=== PATIENT | male | born 1930 | race Caucasian/White ===

== ENCOUNTER 2018-10-28 18:19 | Inpatient (IN) | payer OTHER, MEDICARE ==
[~2018-10-28] VITALS: Ht 165.1 cm; Wt 58.1 kg
--- NOTE | 2018-10-28 19:27 | NUR ---
BREANNE SARAVIA PA SPEAKING TO PT IN [facility]. AWAITING ER BED.
[2018-10-28 20:00] LABS: BASOPHILS # (AUTO) 0.1 /CMM (0.0-0.2); BASOPHILS % (AUTO) 1.2 % (0.0-2.0); HEMATOCRIT 33 % (39-51); HEMOGLOBIN 10.6 g/dL (13.5-17.5); LYMPHOCYTES # (AUTO) 0.6 /CMM (0.8-4.8); LYMPHOCYTES % (AUTO) 14.5 % (20.0-44.0); MEAN CORPUSCULAR HGB CONC 32 g/dl (31.0-36.0); MEAN CORPUSCULAR VOLUME 89 fL (80-96); MONOCYTES # (AUTO) 0.4 /CMM (0.1-1.30); MONOCYTES % (AUTO) 10.1 % (2.0-12.0); NEUTROPHILS # (AUTO) 3.1 /CMM (1.8-8.9); NEUTROPHILS % (AUTO) 71.2 % (43.0-81.0); PLATELET COUNT (AUTO) 110 /CMM (150-450); RED BLOOD CELL COUNT(AUTO) 3.69 MIL/uL (4.5-6.0); WHITE BLOOD COUNT (AUTO) 4.3 K/uL (4.3-11.0)
[2018-10-28 20:08] LABS: ALANINE AMINOTRANSFERASE 12 U/L (12-78); ALBUMIN 3.2 g/dL (3.4-5.0); ALCOHOL, BLOOD < 3 mg/dL (0-0); ALKALINE PHOSPHATASE 100 U/L (46-116); ASPARTATE AMINOTRANSFERASE 12 U/L (15-37); BILIRUBIN,DIRECT 0.2 mg/dL (0.0-0.2); BILIRUBIN,TOTAL 0.6 mg/dL (0.2-1.0); CALCIUM, SERUM 9.3 mg/dL (8.5-10.1); CARBON DIOXIDE 31 mmol/L (21-32); CHLORIDE 104 mmol/L (98-107); GLUCOSE 101 mg/dL (74-106); POTASSIUM 4.3 mmol/L (3.5-5.1); SODIUM SERUM 142 mmol/L (136-145); TOTAL PROTEIN, SERUM 6.5 g/dL (6.4-8.2); UREA NITROGEN, BLOOD 41 mg/dL (7-18)
[2018-10-28 20:09] LABS: SALICYLATE 0.4 mg/dL (2.8-20.0)
[2018-10-28 20:10] LABS: ACETAMINOPHEN 0 ug/ml (10-30)
--- NOTE | 2018-10-28 20:55 | NUR ---
PT GETTING OUT OF BED UNASSISTED, ABLE TO STAND BUT VERY UNSTEADY. PER RECORD, PT HAS FREQUENT FALLS AT FACILITY. DESPITE FREQUENT REORIENTATION AND EDUCATION, PT CONTINUES TO TRY TO GET OUT OF BED. PT'S HAS ALREADY LEFT ER. PLACED ON 2 POINT SOFT RESTRAINTS FOR SAFETY.
--- NOTE | 2018-10-28 21:30 | NUR ---
PT ATTEMPTED TO URINATE IN URINAL, UNABLE. VERBAL ORDER FOR IN AND OUT CATH OBTAINED.
--- NOTE | 2018-10-28 21:45 | NUR ---
IN AND OUT CATH 14FR PERFORMED FOR NO URINE. DRAINED 30ML CLEAR YELLOW URINE.
--- NOTE | 2018-10-28 21:59 | NUR ---
RIKI TORRES AT BEDSIDE 1:1 SITTER. SOFT WRIST RESTRAINTS DISCONTINUED AT THIS TIME.
--- NOTE | 2018-10-28 22:11 | NUR ---
WINDY RN, CRISIS DINKING MACHINE OPERATOR, AT BEDSIDE.
[2018-10-28 22:31] LABS: APPEARANCE,URINE SL CLOUDY (CLEAR); BILIRUBIN,URINE NEGATIVE (NEGATIVE); BLOOD, URINE TRACE Ery/uL (NEGATIVE); COLOR,URINE YELLOW (YELLOW); KETONES,URINE NEGATIVE (NEGATIVE); LEUKOCYTE ESTERASE ,URINE 3+ (NEGATIVE); NITRITE, URINE NEGATIVE (NEGATIVE); PROTEIN,URINE NEGATIVE (NEGATIVE); UGLUCOSE NEGATIVE (NEGATIVE); UROBILINOGEN,URINE 0.2 EU/dL (0.2)
--- NOTE | 2018-10-28 22:35 | NUR ---
5150 HOLD FOR GD, PSYCHOSIS NOS, ACCEPTED TO DR GUILLERMO
[2018-10-28 22:46] LABS: BACTERIA,URINE Few /HPF (None Seen); RBC,URINE 0-2 /HPF (0-2); SQUAMOUS EPITHELIAL CELL,UR Few /HPF (None Seen); WBC,URINE 51-80 /HPF (0-3)
[2018-10-28 22:47] LABS: MUCUS,URINE Few /LPF (None Seen)
--- NOTE | 2018-10-28 22:52 | NUR ---
REPORT GIVEN TO EDDIE SEGOVIA FOR ADMISSION
[2018-10-28 23:10] VITALS: BP 119/83
[2018-10-29] MEDS ORDERED: LORAZEPAM 0.5 MG TABLET PO PRN
[2018-10-29] MEDS ORDERED: MAG HYDROX/AL HYDROX/SIMETH 30 ML UDC PO PRN
[2018-10-29] MEDS ORDERED: ZOLPIDEM TARTRATE 5 MG TABLET PO PRN
[2018-10-29 00:46] VITALS: BP 119/83
--- NOTE | 2018-10-29 00:54 | NUR ---
ADMISSION NOTES: ADMITTED THIS 88 Y/O MALE FROM ER. PT IS ON 5150 HOLD FOR GD. PER HOLD PT IS CONFUSED, DISORIENTED, DISORGANIZED. PT WAS FOUND OUT OF BED, ANXIOUS, RESTLESS. ACCORDING TO STAFF AT THE FACILITY. PATIENT HAS BEEN INCREASINGLY CONFUSED, AGITATED, AND NOT SLEEPING, WANDERS FROM OTHER PATIENT ROOM, TALKING TO SELF, RESPONDING TO INTERNAL STIMULI. PT UNABLE TO CARE FOR SELF. UPON FACE TO FACE ASSESSMENT PATIENT IS A/O X1, CONFUSED, RESTLESS, AMBULATORY WITH ASSIST. FALL PRECAUTIONS IMPLEMENTED AT ALL TIMES. V/S WNL. RESPIRATION EVEN AND UNLABORED. NO SOB. NO COMPLAIN OF PAIN/DISCOMFORT. NO ACUTE DISTRESS NOTED. SKIN ASSESSMENT DONE. PICTURES TAKEN. BELONGINGS INVENTORIED AND CHECKED FOR CONTRABAND. NO CONTRABAND FOUND. BOTH DOCTORS AWARE AND NOTIFIED OF THE ADMISSION. BED LOCKED AND PLACED ON LOWEST POSITION TO MAINTAIN SAFETY. ALL NEEDS ATTENDED. WILL CONTINUE TO MONITOR Q 15 MINS. FOR SAFETY AND BEHAVIOR.
[2018-10-29] MEDS ORDERED: SENN-168 PO (02:05)
[2018-10-29] MEDS ORDERED: PANT40TA4 PO (02:05)
[2018-10-29] MEDS ORDERED: PANT20TA3 PO (02:05)
[2018-10-29] MEDS ORDERED: ASPI-1169 PO (02:05)
[2018-10-29] MEDS ORDERED: TAMS-12 PO (02:05)
[2018-10-29] MEDS ORDERED: LEVO500T75 PO (02:05)
--- NOTE | 2018-10-29 06:24 | NUR ---
PAGED DR. NEWTON FOR MEDICATION VERIFICATION. AWAITING FOR CALLBACK. WILL ENDORSE TO THE NEXT SHIFT TO FOLLOW UP.
[2018-10-29 07:40] LABS: BASOPHILS % (AUTO) 0.9 % (0.0-2.0); EOSINOPHILS % (AUTO) 3.2 % (0.0-6.0); HEMATOCRIT 33 % (39-51); HEMOGLOBIN 10.8 g/dL (13.5-17.5); LYMPHOCYTES # (AUTO) 0.5 /CMM (0.8-4.8); LYMPHOCYTES % (AUTO) 11.9 % (20.0-44.0); MEAN CORPUSCULAR HGB CONC 33 g/dl (31.0-36.0); MEAN CORPUSCULAR VOLUME 88 fL (80-96); MONOCYTES # (AUTO) 0.5 /CMM (0.1-1.30); MONOCYTES % (AUTO) 11.1 % (2.0-12.0); NEUTROPHILS # (AUTO) 3.1 /CMM (1.8-8.9); NEUTROPHILS % (AUTO) 72.9 % (43.0-81.0); PLATELET COUNT (AUTO) 103 /CMM (150-450); RED BLOOD CELL COUNT(AUTO) 3.75 MIL/uL (4.5-6.0); WHITE BLOOD COUNT (AUTO) 4.2 K/uL (4.3-11.0)
[2018-10-29 07:58] LABS: CHOLESTEROL 110 mg/dL (<200); HDL CHOLESTEROL 39 mg/dL (40-60); LDL 66 mg/dL (0-99); TRIGLYCERIDES 66 mg/dL (30-150)
[2018-10-29] MEDS ORDERED: ATOR10TA PO (08:04)
[2018-10-29] MEDS ORDERED: ZOLP5TAB2 PO (08:04)
[2018-10-29] MEDS ORDERED: MAGN400O6 PO (08:04)
[2018-10-29] MEDS ORDERED: FURO-144 PO (08:04)
[2018-10-29] MEDS ORDERED: OLAN5TAB3 PO (08:04)
[2018-10-29] MEDS ORDERED: MIDO5TAB PO (08:04)
[2018-10-29] MEDS ORDERED: POLY17PO4 PO (08:04)
[2018-10-29] MEDS ORDERED: NA P133E RC (08:04)
[2018-10-29] MEDS ORDERED: LACT10SO PO (08:04)
[2018-10-29] MEDS ORDERED: ACET-868 PO (08:04)
[2018-10-29 08:08] VITALS: BP 133/80
[2018-10-29 08:10] LABS: ALANINE AMINOTRANSFERASE 11 U/L (12-78); ALKALINE PHOSPHATASE 97 U/L (46-116); ASPARTATE AMINOTRANSFERASE 14 U/L (15-37); BILIRUBIN,TOTAL 0.7 mg/dL (0.2-1.0); CALCIUM, SERUM 9.2 mg/dL (8.5-10.1); CARBON DIOXIDE 28 mmol/L (21-32); CHLORIDE 104 mmol/L (98-107); CREATININE 1.9 mg/dL (0.6-1.3); GLUCOSE 84 mg/dL (74-106); POTASSIUM 4.1 mmol/L (3.5-5.1); SODIUM SERUM 142 mmol/L (136-145); TOTAL PROTEIN, SERUM 6.1 g/dL (6.4-8.2); UREA NITROGEN, BLOOD 41 mg/dL (7-18)
[2018-10-29] MEDS ORDERED: MAGNESIUM HYDROXIDE 30 ML UDC PO PRN ×2 (14:00)
[2018-10-29] MEDS ORDERED: ACETAMINOPHEN 325 MG TABLET PO PRN ×2 (14:00)
[2018-10-29] MEDS ORDERED: LEVOFLOXACIN (500MG) 500 MG TABLET PO ONE (15:00)
[2018-10-29] MEDS: SENNOSIDES 8.6 MG TABLET PO SCH (16:58)
[2018-10-29 17:13] VITALS: BP 115/57
[2018-10-29 20:00] VITALS: BP 120/77
[2018-10-29] MEDS: OLANZAPINE 2.5 MG TABLET PO SCH (22:03)
[2018-10-29] MEDS: TAMSULOSIN 0.4 MG CAP.SR.24H PO SCH (22:03)
[2018-10-29] MEDS: ATORVASTATIN 10 MG TABLET PO SCH (22:03)
[2018-10-30 07:58] VITALS: BP 104/76
[2018-10-30] MEDS: ASPIRIN 81 MG TAB.CHEW PO SCH (08:46)
[2018-10-30] MEDS: POLYETHYLENE GLYCOL 3350 17 GM POWD.PACK PO SCH (08:46)
[2018-10-30] MEDS: PANTOPRAZOLE 40 MG TABLET.DR PO SCH (08:46)
[2018-10-30] MEDS: SENNOSIDES 8.6 MG TABLET PO SCH ×2 (08:46→16:53)
--- NOTE | 2018-10-30 11:46 | NUR ---
RECEIVED NEW ORDERS FROM DR TRUDI BOWLING TO GIVE NS @ 100MLS/HR X 2 LITERS, NOTED AND CARRIED OUT.
--- NOTE | 2018-10-30 11:58 | NUR ---
CLARIFFIED NEW ORDERS WITH DR TRUDI BOWLING REGARDING NS @ 100MLS/HR X 2 LITERS, WITH NEW ORDERS TO CHANGE TO D5NS @ 100MLS/HR X 2 LITERS, NOTED AND CARRIED OUT.
[2018-10-30] MEDS ORDERED: IV NS 0.9% 1,000 ML BAG IV PRN (12:00)
[2018-10-30] MEDS ORDERED: IV NS 0.9% 1,000 ML IV SCH (12:00)
[2018-10-30] MEDS: IV D5/ 0.9% NACL 1,000 ML IV SCH ×2 (12:50→22:54)
[2018-10-30] MEDS: LEVOFLOXACIN (250MG) 250 MG TABLET PO SCH (15:25)
[2018-10-30 16:19] VITALS: BP 123/85
[2018-10-30 20:00] VITALS: BP 116/47
[2018-10-30 20:30] VITALS: BP 116/47
[2018-10-30] MEDS: TAMSULOSIN 0.4 MG CAP.SR.24H PO SCH (21:16)
[2018-10-30] MEDS: OLANZAPINE 2.5 MG TABLET PO SCH (21:16)
[2018-10-30] MEDS: ATORVASTATIN 10 MG TABLET PO SCH (21:16)
[2018-10-31 07:36] LABS: BASOPHILS % (AUTO) 0.5 % (0.0-2.0); EOSINOPHILS % (AUTO) 3.1 % (0.0-6.0); HEMATOCRIT 33 % (39-51); LYMPHOCYTES # (AUTO) 0.4 /CMM (0.8-4.8); LYMPHOCYTES % (AUTO) 8.5 % (20.0-44.0); MEAN CORPUSCULAR HGB CONC 33 g/dl (31.0-36.0); MEAN CORPUSCULAR VOLUME 88 fL (80-96); MONOCYTES # (AUTO) 0.5 /CMM (0.1-1.30); MONOCYTES % (AUTO) 9.4 % (2.0-12.0); NEUTROPHILS # (AUTO) 3.8 /CMM (1.8-8.9); NEUTROPHILS % (AUTO) 78.5 % (43.0-81.0); PLATELET COUNT (AUTO) 95 /CMM (150-450); RED BLOOD CELL COUNT(AUTO) 3.77 MIL/uL (4.5-6.0); WHITE BLOOD COUNT (AUTO) 4.8 K/uL (4.3-11.0)
[2018-10-31 08:00] VITALS: BP 149/78
[2018-10-31 08:00] LABS: ALANINE AMINOTRANSFERASE 11 U/L (12-78); ALBUMIN 2.9 g/dL (3.4-5.0); ALKALINE PHOSPHATASE 89 U/L (46-116); ASPARTATE AMINOTRANSFERASE 22 U/L (15-37); BILIRUBIN,TOTAL 0.6 mg/dL (0.2-1.0); CALCIUM, SERUM 8.8 mg/dL (8.5-10.1); CARBON DIOXIDE 26 mmol/L (21-32); CHLORIDE 108 mmol/L (98-107); CREATININE 1.5 mg/dL (0.6-1.3); GLUCOSE 116 mg/dL (74-106); PHOSPHORUS 3.9 mg/dL (2.5-4.9); POTASSIUM 4.1 mmol/L (3.5-5.1); SODIUM SERUM 144 mmol/L (136-145); UREA NITROGEN, BLOOD 43 mg/dL (7-18)
--- NOTE | 2018-10-31 08:00 | NUR ---
gps river tester: initial assessment received pt in bed awake, but confused and disoriented; unable to comprehend and follow simple directions. sitter at bedside for safety. hob elevated at 90 degree for meal. reality orientation provided prn. will continue to monitor.
[2018-10-31 08:07] LABS: CREATINE KINASE, TOTAL 333 U/L (39-308)
[2018-10-31] MEDS: PANTOPRAZOLE 40 MG TABLET.DR PO SCH (08:10)
[2018-10-31] MEDS: POLYETHYLENE GLYCOL 3350 17 GM POWD.PACK PO SCH (08:10)
[2018-10-31] MEDS: ASPIRIN 81 MG TAB.CHEW PO SCH (08:10)
[2018-10-31] MEDS: SENNOSIDES 8.6 MG TABLET PO SCH ×2 (08:10→16:06)
--- NOTE | 2018-10-31 10:00 | NUR ---
gps take off worker: notes am care rendered by heel slugger. incontinent care rendered by staff. pt is resistive during care and keeps tossing and turning. reality orientation provided prn. sitter remains at bedside. will continue to monitor.
--- NOTE | 2018-10-31 10:09 | NUR ---
MELLY contacted [facility] Address: [address] [place] [address] and spoke with Edie, resident service coordinator regarding pts readmission. Edie stated that she would have DON contact MELLY to discuss pts readmission status.
--- NOTE | 2018-10-31 10:10 | NUR ---
SW spoke with pts Jo Ann [phone] regarding pts discharge plan and collateral information.
--- NOTE | 2018-10-31 11:05 | NUR ---
SW contacted KYLE Duncan at [facility] Address: [address] [place] [address] and left voicemail requesting callback to confirm pts re-admission.
--- NOTE | 2018-10-31 11:09 | NUR ---
INITIAL DISCHARGE PLAN: Patient will return to [facility] Address: [address] [facility], [place] [address] . MELLY left PerlaKYLE at voicemail requesting callback to confirm re-admission. MELLY will help form a safe and proper discharge in collaboration with pts and MD.
--- NOTE | 2018-10-31 12:00 | NUR ---
gps video machines mechanic: notes pt remains resistive while doing incontinency care. turned and repositioned. pt moves when repositioned to side to side. sitter remains at bedside. will continue to monitor.
--- NOTE | 2018-10-31 12:37 | NUR ---
SW contacted pts Jo Ann [phone] to inform her [facility] is not authorizing inpatient hospitalization due to SO being out of their network. Pts is being very difficult stating that the information event coordinator received is incorrect. SW attempted to tell her that BX is not authorizing and she states the opposite that she contacted them and they told her he was pre-authorized. Again, SW informed her event coordinator had contacted BX and SW explained information event coordinator has received. Pts refused to accept the information provided was accurate. She is requesting event coordinator contact her as she states BX and Medicare have the correct name and matching demographics. The address on his face sheet is the address to the [facility] came from.
--- NOTE | 2018-10-31 13:52 | NUR ---
UR NOTE: AUTH/REF#[id number] OBTAINED FROM MCKENZIE Storey WITH [facility] AT [phone]. SW left verbal clinical review via voicemail with DRYWALL HANGER HELPER ASSIGNED EMILY Higuera [phone] EXT [phone].
--- NOTE | 2018-10-31 14:00 | NUR ---
gps bill of lading clerk: notes pt remains resistive to care, but no agitation noted. incontinent care rendered. z guard applied prn for sacral redness noted. will continue to monitor.
--- NOTE | 2018-10-31 14:59 | NUR ---
UR NOTE: SW received a voicemail from HOSPITAL ADMINISTRATOR ASSIGNED EMILY Higuera [phone] EXT [phone] stating BX will not authorize and they will close the case because the carve out; [place] must take responsibility, especially for an ER admission on hold.
[2018-10-31 16:00] VITALS: BP 130/75
--- NOTE | 2018-10-31 16:00 | NUR ---
gps glass blowing instructor: notes pt still with no agitation, but moves around in bed when repositioned. still resistive during incontinent care. turned and repositioned. will continue to monitor.
[2018-10-31] MEDS: LEVOFLOXACIN (250MG) 250 MG TABLET PO SCH (16:06)
--- NOTE | 2018-10-31 18:00 | NUR ---
gps attache: notes noted with unopen blister to left sacral area (o.5cmx0.3cm); still with redness. z guard applied with mepilex. incontinent care rendered. pt still with no agitation, but moves around in bed when repositioned. wound triggered. dr. mayorga notified and made aware. Addendum: 10/31/18 at 1849 by CHARLENE VARMAN charge nurse at bedside and assessed the wound.
--- NOTE | 2018-10-31 18:15 | NUR ---
gps marketing analytics specialist: notes here and made aware and updated plan of care.
--- NOTE | 2018-10-31 18:30 | NUR ---
gps admission nurse: notes pt attempting to get out of bed. assisted back safely to bed and repositioned. remains at bedside. pt remains confused and disoriented. reality orientation provided prn. sitter remains at bedside. will continue to monitor.
--- NOTE | 2018-10-31 19:00 | NUR ---
gps logistics planning engineer: notes report given to novem (rn) for continuity of care. remains at bedside.
[2018-10-31] MEDS: TAMSULOSIN 0.4 MG CAP.SR.24H PO SCH (21:35)
[2018-10-31] MEDS: ATORVASTATIN 10 MG TABLET PO SCH (21:35)
[2018-10-31] MEDS: QUETIAPINE FUMARATE 25 MG TABLET PO SCH (21:35)
[2018-10-31 21:36] VITALS: BP 133/87
--- NOTE | 2018-11-01 05:27 | NUR ---
GPS-RN CALLED BY AIRCRAFT REFUELLER TO ASSESS PATIENT. IMMEDIATELY WENT TO PT'S ROOM. PATIENT IS RESPONSIVE TO TACTILE AND VERBAL STIMULI, BOTH EYES ARE CLOSED. V/S TAKEN AND NOTED BP 128/81, PULSE 100, R21, T98.1 O2 SATURATION @97% ON ROOM AIR. NO ACUTE OR RESPIRATORY DISTRESS NOTED. PATIENT NOTED HAVING PRODUCTIVE COUGH UNABLE TO COUGH UP THE MUCUS/PHLEGM. UPON AUSCULTATION NOTED WITH FINE CRACKLES. HEAD OF THE BED ELEVATED TO PROMOTE OXYGENATION. OFFERED FLUIDS TOLERATED. ISELA HANDY INFORMATICS DEVELOPER WAS NOTIFIED OF FINDING ASSESSMENT WITH NEW ORDER OF MUCINEX 600MG PO Q12HRS PRN NOTED AND CARRIED OUT. WILL MONITOR PATIENT CLOSELY FOR SAFETY. [id number]- PAGED DR. NEWTON LEFT MESSAGE REGARDING PATIENT CHANGE IN CONDITION. AWAITING CALL BACK.
[2018-11-01] MEDS ORDERED: GUAIFENESIN LA 600 MG TABLET.SA PO PRN ×2 (06:00)
[2018-11-01] MEDS: GUAIFENESIN LA 600 MG TABLET.SA PO PRN (06:27)
[2018-11-01] MEDS: PANTOPRAZOLE 40 MG TABLET.DR PO SCH (07:30)
[2018-11-01 08:00] VITALS: BP 132/96
[2018-11-01] MEDS: ASPIRIN 81 MG TAB.CHEW PO SCH (09:00)
[2018-11-01] MEDS: POLYETHYLENE GLYCOL 3350 17 GM POWD.PACK PO SCH (09:00)
[2018-11-01] MEDS: SENNOSIDES 8.6 MG TABLET PO SCH ×2 (09:00→18:04)
--- NOTE | 2018-11-01 09:37 | NUR ---
MELLY spoke with Vinny, volunteer recruitment coordinator at [facility] Address: [address] [place] [address] who stated administration did not want to accept pt back as they were not a locked facility and therefore wanted SO to find placement. MELLY explained that since they brought pt to ER, legally they must take pt back as facility is still charging insurance for pts bed hold and can be considered dumping if they do not take pt back. Vinny, asked SW for callback number and stated "ok" SW will follow up and also contact Dr. Beatty to inform him that facility does not want to take pt back.
--- NOTE | 2018-11-01 10:52 | NUR ---
WOUND CARE CONSULT: PT PRESENTS WITH DRY SCAB TO LEFT ELBOW AND BLANCHABLE REDNESS TO SACRAL AREA, PRESENT ON ADMISSION. PT ALSO NOTED TO HAVE INTACT BLISTER TO LEFT INNER BUTTOCK WHICH IS INCONTINENCE ASSOCIATED SKIN DAMAGE. RECOMMENDATIONS MADE FOR WOUND CARE AND SKIN PROTECTION. DISCUSSED WITH NURSING STAFF. SITTER AT BEDSIDE. CURRENT THIAGO SCORE IS 14. Addendum: 11/01/18 at 1053 by DARBY POLLOCK WNDNU Amended: Links added.
[2018-11-01] MEDS ORDERED: Z GUARD REMEDY 2 OZ OINT TP PRN (11:00)
[2018-11-01 12:11] LABS: *SPE A/G RATIO 1.3 (0.7-1.7); *SPE ALBUMIN 3.3 g/dL (2.9-4.4); *SPE ALPHA-1-GLOBULIN 0.2 g/dL (0.0-0.4); *SPE ALPHA-2-GLOBULIN 0.6 g/dL (0.4-1.0); *SPE BETA GLOBULIN 0.8 g/dL (0.7-1.3); *SPE GLOBULIN, TOTAL 2.5 g/dL (2.2-3.9); *SPE M-SPIKE Not Observed g/dL (Not Observed); *SPEGAMMA GLOBULIN 0.9 g/dL (0.4-1.8); PTH, INTACT 51 pg/mL (15-65)
[2018-11-01] MEDS: Z GUARD REMEDY 2 OZ OINT TP SCH (13:25)
[2018-11-01 16:00] VITALS: BP 133/68
[2018-11-01 20:18] VITALS: BP 131/92
[2018-11-01] MEDS: QUETIAPINE FUMARATE 25 MG TABLET PO SCH (21:45)
[2018-11-01] MEDS: ATORVASTATIN 10 MG TABLET PO SCH (21:45)
[2018-11-01] MEDS: TAMSULOSIN 0.4 MG CAP.SR.24H PO SCH (21:45)
--- NOTE | 2018-11-02 05:45 | NUR ---
GPS-RN UNABLE TO COLLECT URINE. PATIENT IS RESISTIVE TO CARE AND UNCOOPERATIVE. WILL ENDORSE FOR CONTINUITY OF CARE.
[2018-11-02] MEDS: PANTOPRAZOLE 40 MG TABLET.DR PO SCH (07:30)
[2018-11-02 08:00] VITALS: BP 100/67
[2018-11-02] MEDS: POLYETHYLENE GLYCOL 3350 17 GM POWD.PACK PO SCH (08:56)
[2018-11-02] MEDS: ASPIRIN 81 MG TAB.CHEW PO SCH (08:56)
[2018-11-02] MEDS: SENNOSIDES 8.6 MG TABLET PO SCH ×2 (08:56→17:34)
[2018-11-02] MEDS: Z GUARD REMEDY 2 OZ OINT TP SCH (08:56)
--- NOTE | 2018-11-02 14:48 | NUR ---
MELLY spoke with Vinny, recruiting administrator at [facility] Address: [address] [place] [address] to confirm facility would be taking pt back. Vinny stated that facility did not want to accept pt back and also stated that DON had spoken with pts psychiatrist Dr. Suazo regarding finding a locked facility for pt. MELLY explained that due to pts HMO insurance MELLY was unable to find placement elsewhere and since [facility] was the sending facility by law facility needed to accept pt back and if they did not want to continue treating pt they needed to give pts a 30 day notice. MELLY also informed Vinny that not accepting pt back is considering dumping. Vinny became upset, MELLY informed him that SW booth supervisor would contact him.
[2018-11-02 16:00] VITALS: BP 159/86
--- NOTE | 2018-11-02 16:46 | NUR ---
dr. galeano informed of neuro consult by dr. jeff.
[2018-11-02 16:50] LABS: BASOPHILS % (AUTO) 0.6 % (0.0-2.0); EOSINOPHILS % (AUTO) 1.1 % (0.0-6.0); HEMATOCRIT 33 % (39-51); HEMOGLOBIN 10.8 g/dL (13.5-17.5); LYMPHOCYTES # (AUTO) 0.4 /CMM (0.8-4.8); LYMPHOCYTES % (AUTO) 5.5 % (20.0-44.0); MEAN CORPUSCULAR HGB CONC 33 g/dl (31.0-36.0); MEAN CORPUSCULAR VOLUME 88 fL (80-96); MONOCYTES # (AUTO) 0.5 /CMM (0.1-1.30); MONOCYTES % (AUTO) 6.8 % (2.0-12.0); NEUTROPHILS # (AUTO) 6.2 /CMM (1.8-8.9); PLATELET COUNT (AUTO) 88 /CMM (150-450); RED BLOOD CELL COUNT(AUTO) 3.74 MIL/uL (4.5-6.0); WHITE BLOOD COUNT (AUTO) 7.2 K/uL (4.3-11.0)
[2018-11-02 17:08] LABS: CALCIUM, SERUM 8.9 mg/dL (8.5-10.1); CARBON DIOXIDE 28 mmol/L (21-32); CHLORIDE 109 mmol/L (98-107); CREATININE 1.4 mg/dL (0.6-1.3); GLUCOSE 96 mg/dL (74-106); POTASSIUM 3.8 mmol/L (3.5-5.1); SODIUM SERUM 145 mmol/L (136-145); UREA NITROGEN, BLOOD 49 mg/dL (7-18)
--- NOTE | 2018-11-02 17:37 | NUR ---
pt is alert oriented x 1. pt appears to be sedated. sleeping majority of the time. occasionally awake but would fall asleep without any stimuli. psych and archaeology professor are aware.
[2018-11-02 17:47] LABS: BAND % (MANUAL) 1 % (0.0-5.0); LYMPHOCYTES % (MANUAL) 1 % (16-48); NEUTROPHILS % (MANUAL) 93 (42-76)
[2018-11-02 17:48] LABS: MONOCYTES % (MANUAL) 4 % (0-11.0)
[2018-11-02 17:49] LABS: EOSINOPHILS % (MANUAL) 1 % (0-4)
--- NOTE | 2018-11-02 18:36 | NUR ---
pt is alert oriented x 1. pt appears to be sedated. sleeping majority of the time. occasionally awake but would fall asleep without any stimuli. very poor oral intake today. psych and director patient are aware.
--- NOTE | 2018-11-02 18:37 | NUR ---
unable to retract foreskin of penis. unable to do in and out casanova. condom cath placed for UA.
--- NOTE | 2018-11-02 18:44 | NUR ---
bladder scan with approx 250ml.
[2018-11-02 19:41] VITALS: BP 143/84
[2018-11-02 21:21] LABS: APPEARANCE,URINE SL CLOUDY (CLEAR); BILIRUBIN,URINE NEGATIVE (NEGATIVE); BLOOD, URINE NEGATIVE Ery/uL (NEGATIVE); COLOR,URINE YELLOW (YELLOW); KETONES,URINE NEGATIVE (NEGATIVE); LEUKOCYTE ESTERASE ,URINE NEGATIVE (NEGATIVE); NITRITE, URINE NEGATIVE (NEGATIVE); PROTEIN,URINE 1+ mg/dl (NEGATIVE); UGLUCOSE NEGATIVE (NEGATIVE); UROBILINOGEN,URINE 0.2 EU/dL (0.2)
[2018-11-02 21:24] LABS: CREATININE, URINE 113.2 MG/DL (30.0-125.0); URINE TOTAL PROTEIN 75.7 mg/dL (0-11.9)
[2018-11-02 21:37] LABS: BACTERIA,URINE Few /HPF (None Seen); RBC,URINE 0-2 /HPF (0-2); SQUAMOUS EPITHELIAL CELL,UR Rare /HPF (None Seen); WBC,URINE 0-2 /HPF (0-3)
[2018-11-02] MEDS: ATORVASTATIN 10 MG TABLET PO SCH (21:54)
[2018-11-02] MEDS: QUETIAPINE FUMARATE 25 MG TABLET PO SCH (21:55)
[2018-11-02] MEDS: TAMSULOSIN 0.4 MG CAP.SR.24H PO SCH (21:55)
[2018-11-02 22:43] LABS: EOSINOPHIL,URINE None Seen
[2018-11-03] MEDS: GUAIFENESIN LA 600 MG TABLET.SA PO PRN (01:53)
[2018-11-03 08:00] VITALS: BP 136/81
[2018-11-03] MEDS: PANTOPRAZOLE 40 MG TABLET.DR PO SCH ×2 (08:00→09:14)
[2018-11-03] MEDS: ASPIRIN 81 MG TAB.CHEW PO SCH (09:14)
[2018-11-03] MEDS: POLYETHYLENE GLYCOL 3350 17 GM POWD.PACK PO SCH (09:14)
[2018-11-03] MEDS: SENNOSIDES 8.6 MG TABLET PO SCH (09:14)
[2018-11-03] MEDS: Z GUARD REMEDY 2 OZ OINT TP SCH (09:14)
--- NOTE | 2018-11-03 10:16 | NUR ---
MELLY faxed SNF referral to Mckenzie Rust at [facility] Address: [address] [place] [address] for review.
--- NOTE | 2018-11-03 10:17 | NUR ---
RN-CO: Paged Nikita COW RIDER, to notify regarding BUN 49 and creatinine 1.4 awaiting to call back.
--- NOTE | 2018-11-03 10:27 | NUR ---
GPS/RN-NOTES BONNIE DURHAM CALLED AND STATED" HE WILL COME TO SEE THE PATIENT".
--- NOTE | 2018-11-03 11:36 | NUR ---
DISCHARGE NOTE: Pt is being discharged to MED/SURG due to Dehydration. Pts hold was discontinued and discharge will be coordinated by unit social work case manager.
--- NOTE | 2018-11-03 11:42 | NUR ---
GPS/RN-NOTES BONNIE DURHAM SEEN THE PATIENT WITH ORDERS. Addendum: 11/03/18 at 1146 by LORE MENDIOLA RN GIVE IV 0.9% NS 500ML AT 100ML/HR. X1 THAN D/C AT MED SURG UNIT.
[2018-11-03] MEDS ORDERED: IV NS 0.9% 500 ML IV ONE (12:00)
[2018-11-03] MEDS ORDERED: IV NS 0.9% 1,000 ML IV PRN (12:00)
--- NOTE | 2018-11-03 12:12 | NUR ---
MELLY faxed referral packet to Aimee, school community relations coordinator at [facility] Address: [address], [place] [address] for review of possible psych unit admission/transfer.
[2018-11-03 13:43] LABS: BASOPHILS # (AUTO) 0.1 /CMM (0.0-0.2); BASOPHILS % (AUTO) 0.6 % (0.0-2.0); EOSINOPHILS % (AUTO) 1.2 % (0.0-6.0); HEMATOCRIT 34 % (39-51); HEMOGLOBIN 11.2 g/dL (13.5-17.5); LYMPHOCYTES # (AUTO) 0.3 /CMM (0.8-4.8); LYMPHOCYTES % (AUTO) 3.7 % (20.0-44.0); MEAN CORPUSCULAR HGB CONC 33 g/dl (31.0-36.0); MEAN CORPUSCULAR VOLUME 88 fL (80-96); MONOCYTES # (AUTO) 0.4 /CMM (0.1-1.30); MONOCYTES % (AUTO) 5.4 % (2.0-12.0); NEUTROPHILS # (AUTO) 7.3 /CMM (1.8-8.9); NEUTROPHILS % (AUTO) 89.1 % (43.0-81.0); PLATELET COUNT (AUTO) 90 /CMM (150-450); WHITE BLOOD COUNT (AUTO) 8.2 K/uL (4.3-11.0)
[2018-11-03 13:59] LABS: ALANINE AMINOTRANSFERASE 8 U/L (12-78); ALBUMIN 2.8 g/dL (3.4-5.0); ALKALINE PHOSPHATASE 89 U/L (46-116); ASPARTATE AMINOTRANSFERASE 12 U/L (15-37); CALCIUM, SERUM 9.1 mg/dL (8.5-10.1); CARBON DIOXIDE 29 mmol/L (21-32); CHLORIDE 109 mmol/L (98-107); CREATININE 1.3 mg/dL (0.6-1.3); GLUCOSE 112 mg/dL (74-106); POTASSIUM 3.8 mmol/L (3.5-5.1); SODIUM SERUM 146 mmol/L (136-145); TOTAL PROTEIN, SERUM 6.1 g/dL (6.4-8.2); UREA NITROGEN, BLOOD 50 mg/dL (7-18)
[2018-11-03 14:09] LABS: THYROID STIMULATING HORMONE 0.853 uIU/mL (0.358-3.74)
--- NOTE | 2018-11-03 14:57 | NUR ---
RN-CO: PER GENER CHARGE NURSE IN ED, PATIENT WILL BE IN BED # 2. ( PER INSTRUCTIONS OF MERCEDES OFFSET PRINTING OPERATOR)
--- NOTE | 2018-11-03 15:04 | NUR ---
RN-CO: DR GUILLERMO AND PATIENT'S JORDAN SUTTONARD
--- NOTE | 2018-11-03 15:16 | NUR ---
GPS/RN-NOTES PATIENT WAS DISCHARGE TO [facility] ER FOR FURTHER EVALUATIONS. DR GUILLERMO AND PATIENT'S JORDAN RING MADE AWARE OF THE DISCHARGE . REPORT WAS GIVEN TO KATIE (RELATIONSHIP MANAGEMENT LEAD). ALL BELONGINGS INCLUDING DENTURE WAS DISCHARGE WITH PATIENT ENDORSE ALL TO KATIE.
[2018-11-03] MEDS ORDERED: MAG30ORA PO (15:17)
[2018-11-03] MEDS ORDERED: QUET25TA PO (15:17)
[2018-11-03] MEDS ORDERED: ZOLP5TAB8 PO (15:17)
[2018-11-03] MEDS ORDERED: LORA1TAB PO (15:17)
[2018-11-03] MEDS ORDERED: ALLA266C2 TP ×2 (15:17)
[2018-11-03] MEDS ORDERED: GUAI600T53 PO (15:17)
== END 2018-11-03 15:00 | DRG 885 ==
LOC: ER 18:21 → GPS 22:47
PROVIDERS: ADMIT Psychiatry & Neurology Psychiatry; ATTEND Psychiatry & Neurology Psychiatry
DX: F29 Unspecified psychosis not due to a substance or known physiological condition (principal); F01.50 Vascular dementia, unspecified severity, without behavioral disturbance, psychotic disturbance, mood disturbance, and anxiety; N18.3 Chronic kidney disease, stage 3 (moderate); N17.0 Acute kidney failure with tubular necrosis; G92 Toxic encephalopathy; N39.0 Urinary tract infection, site not specified; I12.9 Hypertensive chronic kidney disease with stage 1 through stage 4 chronic kidney disease, or unspecified chronic kidney disease; E78.5 Hyperlipidemia, unspecified; Z86.73 Personal history of transient ischemic attack (TIA), and cerebral infarction without residual deficits; Z79.899 Other long term (current) drug therapy; N40.0 Benign prostatic hyperplasia without lower urinary tract symptoms; K72.90 Hepatic failure, unspecified without coma; R33.9 Retention of urine, unspecified; Z79.82 Long term (current) use of aspirin; B96.5 Pseudomonas (aeruginosa) (mallei) (pseudomallei) as the cause of diseases classified elsewhere; Z16.30 Resistance to unspecified antimicrobial drugs; J44.9 Chronic obstructive pulmonary disease, unspecified; I48.0 Paroxysmal atrial fibrillation; Z73.6 Limitation of activities due to disability
CPT/HCPCS: 36415; 70450-TC; 71045-TC; 80048-TC; 80053-TC; 80061-TC; 80076-TC; 80305; 81000-TC; 82550-TC; 82553-TC; 82570-TC; 82962-TC; 83605-TC; 83735-TC; 83970; 84100-TC; 84155; 84155-TC; 84165; 84300-TC; 84443-TC; 85025-TC; 87081-TC; 87086-TC; A4349; A4606; G0480; J7030; J7040; J7042; Z7610

== ENCOUNTER 2018-11-03 15:09 | Inpatient (IN) | payer OTHER, MEDICARE ==
[~2018-11-03] VITALS: Ht 182.9 cm; Wt 59.9 kg
[~2018-11-03 15:09] MED LIST: ACET-868 PO; ASPI-1169 PO; ATOR10TA PO; FURO-144 PO; LACT10SO PO; LEVO500T75 PO; MAGN400O6 PO; MIDO5TAB PO; NA P133E RC; PANT40TA4 PO; POLY17PO4 PO; SENN-168 PO; TAMS-12 PO
[2018-11-03] MEDS ORDERED: QUET25TA PO (15:17)
[2018-11-03] MEDS ORDERED: ALLA266C2 TP ×2 (15:17)
[2018-11-03] MEDS ORDERED: ZOLP5TAB8 PO (15:17)
[2018-11-03] MEDS ORDERED: GUAI600T53 PO (15:17)
[2018-11-03] MEDS ORDERED: MAG30ORA PO (15:17)
[2018-11-03] MEDS ORDERED: LORA1TAB PO (15:17)
--- NOTE | 2018-11-03 16:26 | NUR ---
REPORT GIVEN TO LEYDA SEGOVIA. PT AWAITING TRANSFER TO FLOOR.
--- NOTE | 2018-11-03 16:40 | NUR ---
TRANSFERED TO FLOOR IN STABLE CONDITION.
--- NOTE | 2018-11-03 17:30 | NUR ---
MS RN NOTES RECEIVED PATIENT FROM ER. PATIENT ALERT, ORIENTED X1 CONFUSED. DOES NOT APPEAR TO BE IN DISTRESS. PATIENT PLACED IN BED. PATIENT NOTED TO BE FALL RISK. TRYING TO GET OUT OF BED. CHARGE NURSE MADE AWARE OF PATIENT FALL RISK. PATIENT ORIENTED TO ROOM. CALL LIGHT WITHIN REACH. BED IN LOW LOCKED POSITION. BED ALARM ON. PERIPHERAL IV INTACT PATENT. WILL CONTINUE TO MONITOR.
--- NOTE | 2018-11-03 18:20 | NUR ---
MS RN NOTES PATIENT TRANSFERRED TO [facility] DUE TO PATIENT BEING CONFUSED AND TRYING TO GET OUT OF BED WITH SITTER AT [facility]. REPORT GIVEN TO JANETTE.
--- NOTE | 2018-11-03 18:22 | NUR ---
RN NOTES RECEIVED PATIENT FROM ELIZABETH, ADMISSION PENDING. PATIENT A/OX1, CONFUSED, VSS. CALL LIGHT WITHIN REACH, WILL ENDORSE TO ARCHITECTURE TECHNICIAN FOR DAYNA. SITTER AT BEDSIDE.
[2018-11-03 18:23] VITALS: BP 138/76
[2018-11-03] MEDS ORDERED: ACETAMINOPHEN 325 MG TABLET PO PRN (19:00)
[2018-11-03] MEDS ORDERED: Z GUARD REMEDY 2 OZ OINT TP PRN (19:00)
[2018-11-03] MEDS ORDERED: ONDANSETRON HCL/PF 4 MG/2 ML VIAL IVP PRN (19:00)
[2018-11-03] MEDS ORDERED: LACTULOSE 10 G/15 ML UDC (PYXIS) PO PRN (19:00)
[2018-11-03 20:06] VITALS: BP 132/93
[2018-11-03] MEDS ORDERED: ENOXAPARIN SODIUM 40 MG/0.4 ML DISP.SYRIN SQ SCH (21:00)
[2018-11-03] MEDS: TAMSULOSIN 0.4 MG CAP.SR.24H PO SCH (21:34)
[2018-11-03] MEDS: ATORVASTATIN 10 MG TABLET PO SCH (21:34)
[2018-11-04] MEDS: IV 1/2NS 1000 ML 1,000 ML IV PRN ×2 (05:38→17:01)
--- NOTE | 2018-11-04 07:08 | NUR ---
MS RN NOTES PATIENT IN BED EYES CLOSED, RESPOND TO VERBAL AND TACTILE STIMULI. NO ACUTE DISTRESS NOTED. BREATHING UNLABORED. NO SOB NOTED. IV ACCESS PATENT AND INTACT, NO REDNESS OR SWELLING NOTED. SAFETY MEASURES IN PLACE. CALL LIGHT WITHIN REACH. WILL CONTINUE TO MONITOR ACCORDINGLY.
[2018-11-04 07:23] LABS: BASOPHILS % (AUTO) 0.6 % (0.0-2.0); EOSINOPHILS % (AUTO) 2.4 % (0.0-6.0); HEMATOCRIT 34 % (39-51); HEMOGLOBIN 11.3 g/dL (13.5-17.5); LYMPHOCYTES # (AUTO) 0.5 /CMM (0.8-4.8); LYMPHOCYTES % (AUTO) 7.1 % (20.0-44.0); MEAN CORPUSCULAR HGB CONC 33 g/dl (31.0-36.0); MEAN CORPUSCULAR VOLUME 88 fL (80-96); MONOCYTES # (AUTO) 0.5 /CMM (0.1-1.30); MONOCYTES % (AUTO) 6.6 % (2.0-12.0); NEUTROPHILS # (AUTO) 6.2 /CMM (1.8-8.9); NEUTROPHILS % (AUTO) 83.3 % (43.0-81.0); PLATELET COUNT (AUTO) 95 /CMM (150-450); RED BLOOD CELL COUNT(AUTO) 3.88 MIL/uL (4.5-6.0); WHITE BLOOD COUNT (AUTO) 7.4 K/uL (4.3-11.0)
[2018-11-04 07:31] LABS: ALANINE AMINOTRANSFERASE 13 U/L (12-78); ALBUMIN 2.8 g/dL (3.4-5.0); ALKALINE PHOSPHATASE 95 U/L (46-116); ASPARTATE AMINOTRANSFERASE 14 U/L (15-37); BILIRUBIN,TOTAL 0.9 mg/dL (0.2-1.0); CALCIUM, SERUM 9.2 mg/dL (8.5-10.1); CARBON DIOXIDE 29 mmol/L (21-32); CHLORIDE 110 mmol/L (98-107); CREATININE 1.4 mg/dL (0.6-1.3); GLUCOSE 100 mg/dL (74-106); PHOSPHORUS 3.9 mg/dL (2.5-4.9); SODIUM SERUM 146 mmol/L (136-145); TOTAL PROTEIN, SERUM 6.3 g/dL (6.4-8.2); UREA NITROGEN, BLOOD 50 mg/dL (7-18)
[2018-11-04 07:38] LABS: CHOLESTEROL 105 mg/dL (<200); HDL CHOLESTEROL 31 mg/dL (40-60); LDL 65 mg/dL (0-99); THYROID STIMULATING HORMONE 0.892 uIU/mL (0.358-3.74); TRIGLYCERIDES 66 mg/dL (30-150)
[2018-11-04 08:00] VITALS: BP 110/73
[2018-11-04 08:04] LABS: IRON, SERUM 21 ug/dl (50-175); TOTAL IRON BINDING CAPACITY 227 ug/dl (250-450)
[2018-11-04] MEDS ORDERED: LEVOFLOXACIN (500MG) 500 MG TABLET PO SCH (09:00)
[2018-11-04] MEDS: ASPIRIN 81 MG TAB.CHEW PO SCH (09:06)
[2018-11-04] MEDS: POLYETHYLENE GLYCOL 3350 17 GM POWD.PACK PO SCH (09:06)
[2018-11-04] MEDS: MIDODRINE HCL (5MG) 5 MG TABLET PO SCH ×2 (09:06→17:01)
--- NOTE | 2018-11-04 10:31 | NUR ---
SW contacted Med Surg 3 KWAME Benito and informed her that pt's psychiatrist is Dr. Da Silva and to give him a call regarding following up with the pt.
--- NOTE | 2018-11-04 10:43 | NUR ---
GPS Note: Pt. was on a 5250 on [facility] which was broken by Dr Suazo when pt. became medically unstable. Dr Suaoz informed that this pt. will not return to [facility] unit. Plan: Pt. will be continued on psychotropic medication on medical floor. Spoke with Dr Suazo at 1046 today and he will see the pt. on the medical floor. Plan: Pt. needs custodial placement once he is stable from a medical standpoint. Pt. has advanced dementia. Pt. was sent to [facility] by [facility] facility who are adamantly refusing to take the pt. back. transit survey workerNya in GPS tried to ahve facility accept pt. back but they refused. Pt. needs placement in an alternative custodial facility that is contracted with [facility]. stated to intake that effective November 15, pt. will have Medicare as he does not qualify for [facility] ([facility] ) in 2019 due to too few hours worked in 2018 to qualify for [employer] benefit. Dr Suazo will consult psychiatrically on medical floor.
--- NOTE | 2018-11-04 11:13 | NUR ---
MS RN NOTES RECEIVED PATIENT ASLEEP IN BED WITH NO DISTRESS NOTED. PERIPHERAL IV INTACT AND PATENT. NO C/O PAIN OR DISCOMFORT. BED AT LOW LOCK SETTING. ALL BELONGINGS KEPT NEAR BEDSIDE. WILL CONTINUE TO MONITOR.
[2018-11-04 16:00] VITALS: BP 128/85
--- NOTE | 2018-11-04 18:40 | NUR ---
MS RN NOTES RECEIVED NEW ORDERS FROM DR SMITA WOODS WITH ORDERS TO CHANGE IVF TO 125ML/HR, NOTED AND CARRIED OUT.
--- NOTE | 2018-11-04 18:46 | NUR ---
MS RN CLOSING NOTES PATIENT REMAINS ASLEEP IN BED WITH NO DISTRESS NOTED. SITTER AND BEDSIDE. NO C/O PAIN OR DISCOMFORT. ALL DUE MEDS GIVEN ORDERED WITH NO ASE NOTED. PERIPHERAL IV REMAINS INTACT AND PATENT. BED IN LOW LOCK SETTING. CALL LIGHT WITHIN REACH. WILL ENDORSE TO ONCOMING SHIFT.
[2018-11-04 20:00] VITALS: BP 113/81
[2018-11-04] MEDS: QUETIAPINE FUMARATE 25 MG TABLET PO SCH (21:55)
[2018-11-04] MEDS: TAMSULOSIN 0.4 MG CAP.SR.24H PO SCH (21:55)
[2018-11-04] MEDS: ATORVASTATIN 10 MG TABLET PO SCH (21:55)
[2018-11-05] MEDS: IV 1/2NS 1000 ML 1,000 ML IV PRN ×3 (04:25→22:23)
--- NOTE | 2018-11-05 06:20 | NUR ---
MS RN NOTES MORNING CARE RENDERED BY SUSAN GONZALEZ TOLERATED WELL.NO SOB.IVF INFUSING.IN NO ACUTE DISTRESS.WILL ENDORSE TO DAY NURSE FOR DAYNA.
--- NOTE | 2018-11-05 07:26 | NUR ---
MS RN OPENING NOTES RECEIVED PT FROM NIGHTSHIFT NURSE IN STABLE CONDITION. PT IS A/O X1. NO SOB OR ACUTE SIGNS OF DISTRESS NOTED AT THIS TIME. PT ON RA AND SATING WELL. PT CALM AT THIS TIME. IV TO LEFT FA NOTED TO BE PATENT AND INTACT. NO REDNESS OR SIGNS OF INFILTRATION NOTED. PT TOLERATING NS INFUSION WELL. 1:1 SITTER AT BEDSIDE. BED ALARM ON FOR FURTHER SAFETY. BED IN LOW LOCKED POSITION, SIDE RAILS UP X2. WILL CONTINUE TO MONITOR
[2018-11-05 08:00] VITALS: BP 110/74
[2018-11-05 08:32] LABS: CALCIUM, SERUM 8.5 mg/dL (8.5-10.1); CARBON DIOXIDE 27 mmol/L (21-32); CHLORIDE 111 mmol/L (98-107); CREATININE 1.2 mg/dL (0.6-1.3); GLUCOSE 97 mg/dL (74-106); POTASSIUM 3.5 mmol/L (3.5-5.1); SODIUM SERUM 146 mmol/L (136-145); UREA NITROGEN, BLOOD 46 mg/dL (7-18)
[2018-11-05 08:34] LABS: BASOPHILS % (AUTO) 0.5 % (0.0-2.0); EOSINOPHILS % (AUTO) 3.6 % (0.0-6.0); HEMATOCRIT 31 % (39-51); HEMOGLOBIN 10.2 g/dL (13.5-17.5); LYMPHOCYTES # (AUTO) 0.5 /CMM (0.8-4.8); LYMPHOCYTES % (AUTO) 8.2 % (20.0-44.0); MEAN CORPUSCULAR HGB CONC 33 g/dl (31.0-36.0); MEAN CORPUSCULAR VOLUME 88 fL (80-96); MONOCYTES # (AUTO) 0.5 /CMM (0.1-1.30); MONOCYTES % (AUTO) 7.3 % (2.0-12.0); NEUTROPHILS # (AUTO) 5.1 /CMM (1.8-8.9); NEUTROPHILS % (AUTO) 80.4 % (43.0-81.0); PLATELET COUNT (AUTO) 88 /CMM (150-450); RED BLOOD CELL COUNT(AUTO) 3.48 MIL/uL (4.5-6.0); WHITE BLOOD COUNT (AUTO) 6.4 K/uL (4.3-11.0)
[2018-11-05] MEDS: ASPIRIN 81 MG TAB.CHEW PO SCH (08:41)
[2018-11-05] MEDS: POLYETHYLENE GLYCOL 3350 17 GM POWD.PACK PO SCH (08:41)
[2018-11-05] MEDS: MIDODRINE HCL (5MG) 5 MG TABLET PO SCH ×2 (08:41→17:00)
[2018-11-05 11:06] LABS: EOSINOPHILS % (MANUAL) 7 % (0-4); LYMPHOCYTES % (MANUAL) 4 % (16-48); MONOCYTES % (MANUAL) 11 % (0-11.0); MYELOCYTES % 1 % (0-0); NEUTROPHILS % (MANUAL) 77 (42-76)
[2018-11-05 16:00] VITALS: BP 143/86
--- NOTE | 2018-11-05 18:43 | NUR ---
MS RN CLOSING NOTES PT REMAINS STABLE. ALL NEEDS ANTICIPATED AND MET DURING SHIFT AND ORDERS CARRIED OUT ACCORDINGLY. ALL DUE MEDS GIVEN. PRN CARE RENDERED. PT REPOSITIONED AND TURNED PER PROTOCOL. IV REMAINS PATENT AND INTACT. HE CONTINUES TO TOLERATE NS INFUSION. SAFETY MEASURES REMAIN IN PLACE. 1:1 SITTER AT BEDSIDE. WILL ENDORSE TO NIGHTSHIFT RN FOR DAYNA
--- NOTE | 2018-11-05 19:15 | NUR ---
MS/RN OPENING NOTES PT RECEIVED WITH EYES CLOSED, RESTING COMFORTABLY IN BED. SITTER AT BEDSIDE. ON ROOM AIR, BREATHING EVEN AND UNLABORED. IN NO ACUTE DISTRESS. DENIES PAIN AND SOB. IV TO LFA PATENT AND INTACT RUNNING IVF ORDERED. BED IN LOW/LOCKED POSITION WITH CALL LIGHT IN REACH. SIDE RAILS UPX3. WILL CONTINUE TO MONITOR
[2018-11-05 20:00] VITALS: BP 134/78
--- NOTE | 2018-11-05 21:06 | NUR ---
MS/RN NOTES PT MOVED TO ROOM 311-1 IN STABLE CONDITION.
[2018-11-05] MEDS: QUETIAPINE FUMARATE 25 MG TABLET PO SCH (21:58)
[2018-11-05] MEDS: TAMSULOSIN 0.4 MG CAP.SR.24H PO SCH (21:58)
[2018-11-05] MEDS: ATORVASTATIN 10 MG TABLET PO SCH (21:58)
[2018-11-06] MEDS: IV 1/2NS 1000 ML 1,000 ML IV PRN (06:16)
[2018-11-06 06:24] LABS: BASOPHILS % (AUTO) 0.5 % (0.0-2.0); HEMATOCRIT 32 % (39-51); HEMOGLOBIN 10.5 g/dL (13.5-17.5); LYMPHOCYTES # (AUTO) 0.6 /CMM (0.8-4.8); LYMPHOCYTES % (AUTO) 11.7 % (20.0-44.0); MEAN CORPUSCULAR HGB CONC 33 g/dl (31.0-36.0); MEAN CORPUSCULAR VOLUME 87 fL (80-96); MONOCYTES # (AUTO) 0.4 /CMM (0.1-1.30); NEUTROPHILS % (AUTO) 75.8 % (43.0-81.0); PLATELET COUNT (AUTO) 96 /CMM (150-450); RED BLOOD CELL COUNT(AUTO) 3.61 MIL/uL (4.5-6.0); WHITE BLOOD COUNT (AUTO) 5.3 K/uL (4.3-11.0)
[2018-11-06 06:25] LABS: CALCIUM, SERUM 8.2 mg/dL (8.5-10.1); CARBON DIOXIDE 28 mmol/L (21-32); CHLORIDE 109 mmol/L (98-107); CREATININE 1.2 mg/dL (0.6-1.3); GLUCOSE 91 mg/dL (74-106); POTASSIUM 3.8 mmol/L (3.5-5.1); SODIUM SERUM 143 mmol/L (136-145); UREA NITROGEN, BLOOD 36 mg/dL (7-18)
--- NOTE | 2018-11-06 07:15 | NUR ---
MS/RN CLOSING NOTES PT WITH EYES CLOSED. OPENS TO NAME. CONFUSED. ON ROOM AIR, BREATHING EVEN AND UNLABORED. SITTER AT BEDSIDE. IV TO LFA PATENT AND INTACT. NO SIGNIFICANT CHANGES OVERNIGHT. ALL NEEDS MET. TURNED/REPOSITIONED Q2H. HEELS OFFLOADED. KEPT CLEAN AND DRY. BED IN LOW/LOCKED POSITION, BED ALARM ON FOR SAFETY. SIDE RAILS UP X3. ENDORSED TO DAY SHIFT LUCA MCINTOSH.
--- NOTE | 2018-11-06 07:35 | NUR ---
MS RN OPENING NOTES RECEIVED PT FROM NIGHTSHIFT NURSE IN STABLE CONDITION. PT IS A/O X1. NO SOB OR ACUTE SIGNS OF DISTRESS NOTED AT THIS TIME. PT ON RA AND SATING WELL. PT CALM AT THIS TIME. IV TO LEFT FA NOTED TO BE PATENT AND INTACT. NO REDNESS OR SIGNS OF INFILTRATION NOTED. 1:1 SITTER AT BEDSIDE. BED ALARM ON FOR FURTHER SAFETY. BED IN LOW LOCKED POSITION, SIDE RAILS UP X2. WILL CONTINUE TO MONITOR
[2018-11-06 08:00] VITALS: BP 134/81
[2018-11-06] MEDS: MIDODRINE HCL (5MG) 5 MG TABLET PO SCH ×2 (09:00→16:25)
[2018-11-06] MEDS: ASPIRIN 81 MG TAB.CHEW PO SCH (09:04)
[2018-11-06] MEDS: POLYETHYLENE GLYCOL 3350 17 GM POWD.PACK PO SCH (09:05)
[2018-11-06 11:03] LABS: BAND % (MANUAL) 1 % (0.0-5.0); EOSINOPHILS % (MANUAL) 5 % (0-4); LYMPHOCYTES % (MANUAL) 7 % (16-48); MONOCYTES % (MANUAL) 6 % (0-11.0); NEUTROPHILS % (MANUAL) 81 (42-76)
[2018-11-06 16:00] VITALS: BP 138/76
--- NOTE | 2018-11-06 18:12 | NUR ---
MS RN CLOSING NOTES PT REMAINS STABLE. ALL NEEDS ANTICIPATED AND MET DURING SHIFT AND ORDERS CARRIED OUT ACCORDINGLY. ALL DUE MEDS GIVEN. PRN CARE RENDERED. PT REPOSITIONED AND TURNED PER PROTOCOL. IV REMAINS PATENT AND INTACT. HE CONTINUES TO TOLERATE NS INFUSION. SAFETY MEASURES REMAIN IN PLACE. 1:1 SITTER AND PT'S AT BEDSIDE. WILL ENDORSE TO NIGHTSHIFT RN FOR DAYNA
--- NOTE | 2018-11-06 19:35 | NUR ---
RN MS OPENING NOTES RECEIVED PT IN BED, AWAKE ALERT ORIENTEDX1-2, BREATHING EVEN AND UNLABORED ON RA, PHLEGM WITHOUT COUGH, FLUIDS ENCOURAGED. NO COMPLAINT OF PAIN OR DISCOMFORT AT THIS MOMENT. IV ACCESS ON THE L FA #22G WITH 1/2 @125ML/HR. PT CLEAN AND COMFORTABLE, BED IN LOWEST LOCKED POSITION, CALL LIGHT WITHIN REACH AT ALL TIMES, WILL CONTINUE TO MONITOR
[2018-11-06 20:00] VITALS: BP 146/99
[2018-11-06] MEDS: ATORVASTATIN 10 MG TABLET PO SCH (21:47)
[2018-11-06] MEDS: TAMSULOSIN 0.4 MG CAP.SR.24H PO SCH (21:47)
[2018-11-06] MEDS: QUETIAPINE FUMARATE 25 MG TABLET PO SCH (21:47)
[2018-11-07] MEDS: IV 1/2NS 1000 ML 1,000 ML IV PRN ×3 (04:51→23:07)
--- NOTE | 2018-11-07 06:07 | NUR ---
PT REMAINS IN BED, SLEEPING INTERMITTENTLY, EPISODES OF CONFUSION DURING THE NIGHT, BREATHING EVEN AND UNLABORED, SLIGHT WHEEZING NOTES DUE TO PHLEGM, FLUIDS ENCOURAGED. IN NO APPARENT DISTRESS AT THE MOMENT. IV ACCESS ON THE L FA #22G WITH 1/2 NS @125ML/HR AND TOLERATING. NO SIGNIFICANT CHANGE ON CONDITION DURING SHIFT, WILL ENDORSE TO DAY NURSE FOR DAYNA.
[2018-11-07 06:28] LABS: BASOPHILS % (AUTO) 0.6 % (0.0-2.0); EOSINOPHILS % (AUTO) 4.9 % (0.0-6.0); HEMATOCRIT 32 % (39-51); HEMOGLOBIN 10.5 g/dL (13.5-17.5); LYMPHOCYTES # (AUTO) 0.5 /CMM (0.8-4.8); LYMPHOCYTES % (AUTO) 9.9 % (20.0-44.0); MEAN CORPUSCULAR HGB CONC 33 g/dl (31.0-36.0); MEAN CORPUSCULAR VOLUME 87 fL (80-96); MONOCYTES # (AUTO) 0.4 /CMM (0.1-1.30); MONOCYTES % (AUTO) 6.5 % (2.0-12.0); NEUTROPHILS # (AUTO) 4.3 /CMM (1.8-8.9); NEUTROPHILS % (AUTO) 78.1 % (43.0-81.0); PLATELET COUNT (AUTO) 110 /CMM (150-450); RED BLOOD CELL COUNT(AUTO) 3.63 MIL/uL (4.5-6.0); WHITE BLOOD COUNT (AUTO) 5.5 K/uL (4.3-11.0)
[2018-11-07 06:34] LABS: CALCIUM, SERUM 8.2 mg/dL (8.5-10.1); CARBON DIOXIDE 27 mmol/L (21-32); CHLORIDE 108 mmol/L (98-107); CREATININE 1.2 mg/dL (0.6-1.3); GLUCOSE 93 mg/dL (74-106); POTASSIUM 3.7 mmol/L (3.5-5.1); SODIUM SERUM 143 mmol/L (136-145); UREA NITROGEN, BLOOD 33 mg/dL (7-18)
[2018-11-07 08:00] VITALS: BP 143/78
--- NOTE | 2018-11-07 08:00 | NUR ---
MS RN NOTES RECEIVED PATIENT ASLEEP IN BED WITH NO DISTRESS NOTED. CALL LIGHT WITHIN REACH. PERIPHERAL LINE INTACT AND PATENT. NO C/O PAIN OR DISCOMFORT. BED IN LOW LOCK SETTING. ALL BELONGINGS KEPT NEAR BEDSIDE. WILL CONTINUE TO MONITOR.
[2018-11-07] MEDS: POLYETHYLENE GLYCOL 3350 17 GM POWD.PACK PO SCH (08:42)
[2018-11-07] MEDS: ASPIRIN 81 MG TAB.CHEW PO SCH (08:42)
[2018-11-07] MEDS: NEOMY SULF/BACITRAC ZN/POLY 15 GM TUBE TP SCH (08:46)
[2018-11-07] MEDS: MIDODRINE HCL (5MG) 5 MG TABLET PO SCH ×2 (08:52→16:37)
[2018-11-07 16:00] VITALS: BP 134/73
--- NOTE | 2018-11-07 19:15 | NUR ---
MS RN CLOSING NOTES PATIENT REMAINS AWAKE IN BED IN STABLE CONDITION. AT BEDSIDE. ALL DUE MEDS GIVEN ORDERED AND TOLERATED WELL. NO C/O PAIN OR DISCOMFORT. PATIENT PULLED OUT PERIPHERAL IV. NEW IV SITE ON RFA #22 INTACT AND PATENT. ALL BELONGINGS KEPT NEAR BEDSIDE. CALL LIGHT WITHIN REACH. WILL ENDORSE TO ONCOMING SHIFT.
--- NOTE | 2018-11-07 19:16 | NUR ---
MS/RN OPENING NOTES PT RECEIVED AWAKE, HOB ELEVATED. AT BEDSIDE. ON ROOM AIR, BREATHING EVEN AND UNLABORED. DENIES SOB AND PAIN. IN NO ACUTE DISTRESS. A/OX2. IV TO RFA PATENT AND INTACT RUNNING IVF ORDERED. BED IN LOW/LOCKED POSITION WITH CALL LIGHT IN REACH. SIDE RAILS UPX3 AND BED ALARM ON FOR SAFETY. WILL CONTINUE TO MONITOR
[2018-11-07 20:00] VITALS: BP 114/59
[2018-11-07] MEDS: QUETIAPINE FUMARATE 25 MG TABLET PO SCH (21:24)
[2018-11-07] MEDS: ATORVASTATIN 10 MG TABLET PO SCH (21:24)
[2018-11-07] MEDS: TAMSULOSIN 0.4 MG CAP.SR.24H PO SCH (21:24)
[2018-11-08] MEDS: IV 1/2NS 1000 ML 1,000 ML IV PRN ×2 (05:53→18:01)
--- NOTE | 2018-11-08 06:48 | NUR ---
MS/RN CLOSING NOTES PT WITH EYES CLOSED. OPENS EYES TO NAME/TOUCH. ON ROOM AIR, BREATHING EVEN AND UNLABORED. NO SOB OR PAIN NOTED DURING SHIFT. IV TO RFA PATENT AND INTACT RUNNING IVF ORDERED. NO SIGNIFICANT CHANGES OVERNIGHT. TURNED/REPOSITIONED Q2H, HEELS OFFLOADED. BED IN LOW/LOCKED POSITION WITH CALL LIGHT IN REACH, BED ALARM ON FOR SAFETY AND SIDE RAILS UPX3. ALL NEEDS MET. KEPT PT COMFORTABLE. WILL ENDORSE TO DAY SHIFT RN DAYNA.
[2018-11-08 07:08] LABS: BASOPHILS % (AUTO) 0.6 % (0.0-2.0); EOSINOPHILS % (AUTO) 3.4 % (0.0-6.0); HEMATOCRIT 33 % (39-51); HEMOGLOBIN 10.7 g/dL (13.5-17.5); LYMPHOCYTES # (AUTO) 0.6 /CMM (0.8-4.8); LYMPHOCYTES % (AUTO) 8.4 % (20.0-44.0); MEAN CORPUSCULAR HGB CONC 33 g/dl (31.0-36.0); MEAN CORPUSCULAR VOLUME 87 fL (80-96); MONOCYTES # (AUTO) 0.5 /CMM (0.1-1.30); MONOCYTES % (AUTO) 6.8 % (2.0-12.0); NEUTROPHILS % (AUTO) 80.8 % (43.0-81.0); PLATELET COUNT (AUTO) 125 /CMM (150-450); RED BLOOD CELL COUNT(AUTO) 3.77 MIL/uL (4.5-6.0); WHITE BLOOD COUNT (AUTO) 7.5 K/uL (4.3-11.0)
--- NOTE | 2018-11-08 07:18 | NUR ---
RN OPENING NOTES RECEIVED PATIENT IN BED RESTING, AWAKE, A/OX2. NO ACUTE DISTRESS, NO SOB NOTED. DENIED PAIN OR DISCOMFORT AT THIS TIME. IV SITE INTACT AND PATENT. KEPT PATIENT SAFE AND COMFORTABLE. BED IN LOW/LOCKED POSITION, SIDERAILS UP, BED ALARM ON, CALL LIGHT IN REACH. WILL CONTINUE TO MONITOR ACCORDINGLY.
[2018-11-08 07:22] LABS: CALCIUM, SERUM 8.3 mg/dL (8.5-10.1); CARBON DIOXIDE 27 mmol/L (21-32); CHLORIDE 106 mmol/L (98-107); CREATININE 1.2 mg/dL (0.6-1.3); GLUCOSE 88 mg/dL (74-106); POTASSIUM 4.1 mmol/L (3.5-5.1); SODIUM SERUM 140 mmol/L (136-145); UREA NITROGEN, BLOOD 31 mg/dL (7-18)
[2018-11-08 08:00] VITALS: BP 136/74
[2018-11-08] MEDS: POLYETHYLENE GLYCOL 3350 17 GM POWD.PACK PO SCH (08:24)
[2018-11-08] MEDS: ASPIRIN 81 MG TAB.CHEW PO SCH (08:24)
[2018-11-08] MEDS: NEOMY SULF/BACITRAC ZN/POLY 15 GM TUBE TP SCH (08:25)
[2018-11-08] MEDS: MIDODRINE HCL (5MG) 5 MG TABLET PO SCH ×2 (08:30→17:00)
[2018-11-08 16:00] VITALS: BP 125/74
--- NOTE | 2018-11-08 18:52 | NUR ---
TURNED AND REPOSITIONED PATIENT EVERY 2HRS NEEDED. WOUND TREATMENT RENDERED
--- NOTE | 2018-11-08 19:15 | NUR ---
RN NOTES STOPPED IVF. WHEEZING AUDIBLE UPON ASSESSMENT. WILL NOTIFY .
--- NOTE | 2018-11-08 19:17 | NUR ---
RN CLOSING NOTES PATIENT IN STABLE CONDITION. ALL NEEDS ATTENDED AND PROVIDED. ALL DUE MEDICATIONS GIVEN ORDERED. KEPT PATIENT SAFE AND COMFORTABLE. BED IN LOW/LOCKED POSITION, SIDERAILS UPX2, CALL LIGHT IN REACH. ENDORSED TO NIGHT RN FOR DAYNA.
[2018-11-08 20:00] VITALS: BP 134/77
--- NOTE | 2018-11-08 20:45 | NUR ---
MS MANAGER OF CLINICAL INITIAL NOTES PT SEEN SITTING IN BED AWAKE AND ALERT , WHEEZING NOTED WHILE DOING THE ASSESSMENT SKIN WARM TO TOUCH. EDEMA NOTED ON BOTH FOOT. IVF NS AT 125 BUT HOLD FOR A WHILE ALREADY BY DAYSHIFT NURSE CANDIDO/RN. CALLED THE COMPRESSED GAS TESTER MD TO LET HIM KNOW .
--- NOTE | 2018-11-08 20:46 | NUR ---
MS WON NOTES CALLED COMPOSITE TECHNICIAN MD AND SPOKE TO DR UMANA , VITAL SIGNS FF BP 134/77, RESP 18, PULSE 70, TEMP 97.7 AND O2 SAT 93 %. GOT ORDERED NOTED AND CARRIED OUT.
[2018-11-08] MEDS ORDERED: ALBUTEROL FS 2.5 MG/0.5 ML VIAL.NEB NEB SCH (21:00)
[2018-11-08] MEDS ORDERED: IPRATROPIUM NEB FS 0.5 MG/2.5 ML AMPUL.NEB NEB PRN (21:00)
[2018-11-08] MEDS ORDERED: IPRATROPIUM NEB FS 0.5 MG/2.5 ML AMPUL.NEB NEB SCH (21:00)
[2018-11-08] MEDS ORDERED: FUROSEMIDE 20 MG/2 ML VIAL IV ONE (21:00)
[2018-11-08] MEDS ORDERED: ALBUTEROL FS 2.5 MG/0.5 ML VIAL.NEB NEB PRN (21:00)
[2018-11-08] MEDS: ATORVASTATIN 10 MG TABLET PO SCH (21:21)
[2018-11-08] MEDS: TAMSULOSIN 0.4 MG CAP.SR.24H PO SCH (21:21)
[2018-11-08] MEDS: QUETIAPINE FUMARATE 25 MG TABLET PO SCH (21:21)
--- NOTE | 2018-11-08 21:30 | NUR ---
NUCLEAR EQUIPMENT SALES ENGINEER NOTES CHECKED PT AWAKE AND ALERT STILL ON SITTING POSITION AT THIS TIME, HE STATED HE MUCH FEEL BETTER , BREATHING EVEN AND NON-LABORED , ROUTINE MEDS GIVEN ORDERED, WE HELPED HIM TO LYING IN BED RITA CARE RENDERED WITH NO SIGNS OF ANY ACUTE DISTRESS NOTED REPOSITION ON SEMI FOWLERS POSITION WITH SIDE RAILS X2 UP AND BED ALARM SET FOR SAFETY. HAND HELD HIS CALL LIGHT AND KEPT HIM WARM AND COMFORTABLE AT ALL TIMES. WILL CONTINUE MONITORING. .
--- NOTE | 2018-11-08 22:33 | NUR ---
MS WON NOTES PT SLEEPING AT THIS TIME WITH NO SIGNS OF ANY ACUTE DISTRESS NOTED. KEPT HIM WARM AND COMFORTABLE AT ALL TIMES. WILL CONTINUE MONITORING.
--- NOTE | 2018-11-09 05:33 | NUR ---
ms iron pellet tester notes pt remain sleeping without any acute distress noted. will continue monitoring.
[2018-11-09 06:28] LABS: CALCIUM, SERUM 8.7 mg/dL (8.5-10.1); CARBON DIOXIDE 30 mmol/L (21-32); CHLORIDE 106 mmol/L (98-107); CREATININE 1.2 mg/dL (0.6-1.3); GLUCOSE 89 mg/dL (74-106); POTASSIUM 4.4 mmol/L (3.5-5.1); SODIUM SERUM 141 mmol/L (136-145); UREA NITROGEN, BLOOD 29 mg/dL (7-18)
--- NOTE | 2018-11-09 07:15 | NUR ---
MS MAID CLEANING COOKING CLOSING NOTES PT BACK TO SLEEP AFTER DOING OUR MORNING CARE. , STABLE MARGARET THE NIGHT AFTER THE LASIX GIVE AND BREATHING TX. SLEPT WELL AND ALL DUE MEDS GIVEN. KEPT HER WARM AND COMFORTABLE AT ALL TIMES. ON SEMI FOWLERS POSITION WITH SIDE RAILS X2 UP AND BED IN LOW AND LOCK IN POSITION. PLACE CALL LIGHT AT REACH. ENDORSE TO AM NURSE FOR CONTINUITY OF CARE.
--- NOTE | 2018-11-09 07:30 | NUR ---
RN OPENING NOTES RECEIVED PATIENT IN BED RESTING, AWAKE, RESPONSIVE. NO ACUTE DISTRESS, NO SOB NOTED. ON 2LPM O2, TOLERATING WELL. DENIED PAIN OR DISCOMFORT AT THIS TIME. IV SITE INTACT AND PATENT, IVF STILL HELD, A LITTLE WHEEZING STILL NOTED, WILL NOTIFY MD. KEPT PATIENT SAFE AND COMFORTABLE. BED IN LOW/LOCKED POSITION, SIDERAILS UP, BED ALARM ON, CALL LIGHT IN REACH. WILL CONTINUE TO MONITOR ACCORDINGLY.
[2018-11-09 08:00] VITALS: BP 148/83
[2018-11-09] MEDS: POLYETHYLENE GLYCOL 3350 17 GM POWD.PACK PO SCH (08:41)
[2018-11-09] MEDS: ASPIRIN 81 MG TAB.CHEW PO SCH (08:41)
[2018-11-09] MEDS: MIDODRINE HCL (5MG) 5 MG TABLET PO SCH ×2 (09:00→17:00)
[2018-11-09] MEDS: NEOMY SULF/BACITRAC ZN/POLY 15 GM TUBE TP SCH (09:38)
[2018-11-09] MEDS: IV 1/2NS 1000 ML 1,000 ML IV PRN (15:38)
[2018-11-09 16:00] VITALS: BP 125/74
--- NOTE | 2018-11-09 19:25 | NUR ---
MS WON INITIAL NOTES RECEIVED REPORT FROM AM NURSE CANDIDO AND CHECKING THE PATIENT , HE'S RESTING AT THIS TIME WITH NO SIGNS OF ANY ACUTE DISTRESS NOTED. BREATHING EVEN AND NON-LABORED WITH IVF NS AT 50ML/HR INFUSING AT THIS TIME. SKIN WARM AND DRY TO TOUCH. SLIGHT EDEMA ON HIS ANKLE NON-PITTING. NO SOB NOTED. KEPT HIM WARM AND COMFORTABLE AT ALL TIMES. WILL CONTINUE MONITORING. PLACE CALL LIGHT AT REACH.
--- NOTE | 2018-11-09 19:31 | NUR ---
RN CLOSING NOTES PATIENT IN STABLE CONDITION. ALL NEEDS ATTENDED AND PROVIDED. ALL DUE MEDICATIONS GIVEN ORDERED. TURNED AND REPOSITIONED PATIENT EVERY 2 HRS NEEDED. KEPT PATIENT SAFE AND COMFORTABLE. BED IN LOW/LOCKED POSITION, SIDERAILS UPX2, CALL LIGHT IN REACH. ENDORSED TO NIGHT RN FOR DAYNA.
[2018-11-09 20:00] VITALS: BP 98/70
[2018-11-09] MEDS: QUETIAPINE FUMARATE 25 MG TABLET PO SCH (21:44)
[2018-11-09] MEDS: TAMSULOSIN 0.4 MG CAP.SR.24H PO SCH (21:44)
[2018-11-09] MEDS: ATORVASTATIN 10 MG TABLET PO SCH (21:44)
--- NOTE | 2018-11-09 21:58 | NUR ---
MS WON NOTES RITA CARE RENDERED WITH THE HELPED OF POUCH MAKER , REPOSITION PATIENT THEN ROUTINE MEDS GIVEN ORDERED. PT TOLERATED WELL. NO ASPIRATION NOTED. KEPT HIM WARM AND COMFORTABLE AT ALL TIMES. PLACE CALL LIGHT AT REACH WILL CONTINUE MONITORING.
--- NOTE | 2018-11-10 07:23 | NUR ---
MS CHIEF MECHANICAL ENGINEER CLOSING NOTES PT BAKC TO SLEEP AFTER MORNING CARE DONE WELL SKIN CARE. STABLE MARGARET THE NIGHT EVEN HE WOKE UP EARLIER. CONFUSION AT TIMES. IVF STILL INFUSING ON HIS RIGHT FOREARM. ALL DUE MEDS GIVEN AND ALL NEEDS MET. KEPT HIM WARM AND COMFORTABLE AT ALL TIMES. PLACE CALL LIGHT AT REACH. ENDORSE TO AM NURSE FOR CONTINUITY OF CARE. BED ALARM SET FOR SAFETY.
--- NOTE | 2018-11-10 07:35 | NUR ---
MS/RN OPENING NOTE THE PATIENT IS RECEIVED IN BED. PATIENT SLEEPING BUT RESPONSIVE TO VERBAL AND TACTILE STIMULI. DENIES PAIN. RESPIRATION REGULAR AND UNLABORED. IN ROOM AIR AND DENIES SOB. THE PATIENT IN NO APPARENT DISTRESS. RIGHT FOREARM G 22 PATENT AND NORMAL SALINE INFUSING AT 50ML/HR AND NO S/S INFILTRATION NOTED. BED LOW AND LOCKED. SIDE RAILS UP X3. BED ALARM ON. CALL LIGHT WITHIN REACH. WILL CONTINUE TO MONITOR.
[2018-11-10 08:00] VITALS: BP 117/90
[2018-11-10] MEDS: MIDODRINE HCL (5MG) 5 MG TABLET PO SCH ×2 (08:46→16:29)
[2018-11-10] MEDS: POLYETHYLENE GLYCOL 3350 17 GM POWD.PACK PO SCH (08:46)
[2018-11-10] MEDS: ASPIRIN 81 MG TAB.CHEW PO SCH (08:46)
--- NOTE | 2018-11-10 09:33 | NUR ---
MS/RN NOTE NEOSPORIN OINT NOT DELIVERED FROM PHARM. FOLLOW UP CALL IS MADE. WILL ADMINISTER ONCE DELIVERED.
[2018-11-10] MEDS: NEOMY SULF/BACITRAC ZN/POLY 15 GM TUBE TP SCH (10:19)
[2018-11-10 11:42] LABS: BASOPHILS % (AUTO) 0.5 % (0.0-2.0); EOSINOPHILS % (AUTO) 1.3 % (0.0-6.0); HEMATOCRIT 36 % (39-51); HEMOGLOBIN 11.8 g/dL (13.5-17.5); LYMPHOCYTES # (AUTO) 0.7 /CMM (0.8-4.8); MEAN CORPUSCULAR HGB CONC 33 g/dl (31.0-36.0); MEAN CORPUSCULAR VOLUME 89 fL (80-96); MONOCYTES % (AUTO) 12.5 % (2.0-12.0); NEUTROPHILS # (AUTO) 6.4 /CMM (1.8-8.9); NEUTROPHILS % (AUTO) 77.7 % (43.0-81.0); PLATELET COUNT (AUTO) 146 /CMM (150-450); RED BLOOD CELL COUNT(AUTO) 4.03 MIL/uL (4.5-6.0); WHITE BLOOD COUNT (AUTO) 8.3 K/uL (4.3-11.0)
[2018-11-10 11:43] LABS: ALANINE AMINOTRANSFERASE 10 U/L (12-78); ALBUMIN 2.5 g/dL (3.4-5.0); ALKALINE PHOSPHATASE 107 U/L (46-116); ASPARTATE AMINOTRANSFERASE 12 U/L (15-37); BILIRUBIN,TOTAL 0.7 mg/dL (0.2-1.0); CALCIUM, SERUM 8.8 mg/dL (8.5-10.1); CARBON DIOXIDE 28 mmol/L (21-32); CHLORIDE 103 mmol/L (98-107); CREATININE 1.3 mg/dL (0.6-1.3); GLUCOSE 94 mg/dL (74-106); POTASSIUM 4.7 mmol/L (3.5-5.1); SODIUM SERUM 137 mmol/L (136-145); TOTAL PROTEIN, SERUM 5.7 g/dL (6.4-8.2); UREA NITROGEN, BLOOD 33 mg/dL (7-18)
[2018-11-10] MEDS: ENSURE ENLIVE CHOC 237 ML CAN PO SCH ×2 (15:36→18:23)
[2018-11-10 16:00] VITALS: BP 118/59
--- NOTE | 2018-11-10 18:03 | NUR ---
MS/RN CLOSING NOTE THE PATIENT ALERT AND ORIENTED X2. DENIES PAIN. RECEIVES OXYGEN 2L/MIN VIA NASAL CANNULA DN SATURATION IS AT 98%. DENIES SOB. THE PATIENT IN NO APPARENT DISTRESS. RFA G 22 PATENT AND NORMAL SALINE INFUSING AT 50 ML/HR AND NO S/S INFILTRATION NOTED. BED LOW AND LOCKED. SIDE RAILS UP X3. CALL LIGHT WITHIN REACH. WILL ENDORSE TO SCRAP BURNER.
[2018-11-10] MEDS: IV 1/2NS 1000 ML 1,000 ML IV PRN (18:27)
--- NOTE | 2018-11-10 19:40 | NUR ---
MS RN OPENING NOTES RECEIVED PATIENT AWAKE IN BED, DENIES ANY PAIN. RESPIRATION REGULAR AND UNLABORED. ON 2LPM O2 VIA NC. THE PATIENT IN NO APPARENT DISTRESS. RIGHT FOREARM G 22 PATENT AND INTACT NORMAL SALINE INFUSING AT 50ML/HR AND NO S/S OF INFILTRATION NOTED. SAFETY MEASURES OBSERVED, BED IN LOW AND LOCKED. SIDE RAILS UP X3. BED ALARM ON. CALL LIGHT WITHIN REACH. WILL CONTINUE TO MONITOR.
[2018-11-10 20:00] VITALS: BP 119/79
[2018-11-10 20:37] VITALS: BP 119/79
[2018-11-10] MEDS: TAMSULOSIN 0.4 MG CAP.SR.24H PO SCH (21:34)
[2018-11-10] MEDS: QUETIAPINE FUMARATE 25 MG TABLET PO SCH (21:34)
[2018-11-10] MEDS: ATORVASTATIN 10 MG TABLET PO SCH (21:34)
--- NOTE | 2018-11-11 06:20 | NUR ---
RN CLOSING NOTES PATIENT IN STABLE CONDITION. ALL NEEDS ATTENDED AND PROVIDED. ALL DUE MEDICATIONS GIVEN ORDERED. REPOSITIONED ACCORDINGLY. KEPT PATIENT SAFE AND COMFORTABLE. BED IN LOW/LOCKED POSITION, SIDERAILS UPX2, CALL LIGHT IN REACH. ENDORSED TO AM NURSE FOR CONTINUITY OF CARE.
[2018-11-11 06:35] LABS: BASOPHILS % (AUTO) 0.3 % (0.0-2.0); EOSINOPHILS % (AUTO) 0.5 % (0.0-6.0); HEMATOCRIT 32 % (39-51); HEMOGLOBIN 10.8 g/dL (13.5-17.5); LYMPHOCYTES # (AUTO) 0.4 /CMM (0.8-4.8); LYMPHOCYTES % (AUTO) 5.2 % (20.0-44.0); MEAN CORPUSCULAR HGB CONC 33 g/dl (31.0-36.0); MEAN CORPUSCULAR VOLUME 87 fL (80-96); MONOCYTES # (AUTO) 0.8 /CMM (0.1-1.30); MONOCYTES % (AUTO) 10.7 % (2.0-12.0); NEUTROPHILS # (AUTO) 6.1 /CMM (1.8-8.9); NEUTROPHILS % (AUTO) 83.3 % (43.0-81.0); PLATELET COUNT (AUTO) 167 /CMM (150-450); RED BLOOD CELL COUNT(AUTO) 3.71 MIL/uL (4.5-6.0); WHITE BLOOD COUNT (AUTO) 7.4 K/uL (4.3-11.0)
[2018-11-11 06:46] LABS: CALCIUM, SERUM 8.4 mg/dL (8.5-10.1); CARBON DIOXIDE 29 mmol/L (21-32); CHLORIDE 102 mmol/L (98-107); CREATININE 1.3 mg/dL (0.6-1.3); GLUCOSE 109 mg/dL (74-106); POTASSIUM 4.3 mmol/L (3.5-5.1); SODIUM SERUM 138 mmol/L (136-145); UREA NITROGEN, BLOOD 39 mg/dL (7-18)
[2018-11-11 08:00] VITALS: BP 97/67
[2018-11-11] MEDS: ENSURE ENLIVE CHOC 237 ML CAN PO SCH (08:00)
[2018-11-11] MEDS: POLYETHYLENE GLYCOL 3350 17 GM POWD.PACK PO SCH (08:31)
[2018-11-11] MEDS: NEOMY SULF/BACITRAC ZN/POLY 15 GM TUBE TP SCH (08:32)
[2018-11-11] MEDS: ASPIRIN 81 MG TAB.CHEW PO SCH (08:32)
[2018-11-11 09:00] VITALS: BP 97/67
[2018-11-11] MEDS: MIDODRINE HCL (5MG) 5 MG TABLET PO SCH (09:00)
--- NOTE | 2018-11-11 10:22 | NUR ---
RN NOTES PT CONTINUES TO REFUSE AM MEDICATIONS. REFUSING BREAKFAST, AND AM CARE/PT EVAL. WILL CONTINUE TO ENCOURAGE PT FOR TREATMENT COMPLIANCE. WILL CONTINUE TO MONITOR.
--- NOTE | 2018-11-11 15:53 | NUR ---
DISCHARGE NOTE PT DISCHARGED TO [facility]. VSS, NO S/S OF RESP DISTRESS/SOB. NO C/O PAIN AT THIS TIME. A/OX2. REPORT CALLED AND GIVEN TO RN PURLER AT FACILITY. WOUND PHOTOS TAKEN AND PLACED IN CHART. PT UNABLE TO SIGN DISCHARGE INSTRUCTIONS/BELONGINGS SHEET, COSIGNED BY ADDITIONAL LICENSED RN. PT UNABLE TO COMPREHEND D/C TEACHING. NOTIFIED OF PT DISCHARGE. IV ACCESS AND ID BAND REMOVED. PT LEFT HOSPITAL IN PRIVATE AMBULANCE WITH DELICATESSEN SLICER.
== END 2018-11-11 16:08 | DRG 682 ==
LOC: ER 15:13 → MEDSG1 16:56 → MED 18:09
PROVIDERS: ADMIT Family Medicine; ATTEND Nurse Practitioner Acute Care
DX: N17.0 Acute kidney failure with tubular necrosis (principal); G92 Toxic encephalopathy; E44.0 Moderate protein-calorie malnutrition; Z68.1 Body mass index [BMI] 19.9 or less, adult; E87.0 Hyperosmolality and hypernatremia; I12.9 Hypertensive chronic kidney disease with stage 1 through stage 4 chronic kidney disease, or unspecified chronic kidney disease; E78.5 Hyperlipidemia, unspecified; E87.6 Hypokalemia; F03.90 Unspecified dementia, unspecified severity, without behavioral disturbance, psychotic disturbance, mood disturbance, and anxiety; E88.09 Other disorders of plasma-protein metabolism, not elsewhere classified; F29 Unspecified psychosis not due to a substance or known physiological condition; Z73.6 Limitation of activities due to disability; I48.0 Paroxysmal atrial fibrillation; N40.1 Benign prostatic hyperplasia with lower urinary tract symptoms; L89.150 Pressure ulcer of sacral region, unstageable; S50.312A Abrasion of left elbow, initial encounter; S51.811A Laceration without foreign body of right forearm, initial encounter; Z86.73 Personal history of transient ischemic attack (TIA), and cerebral infarction without residual deficits; E86.0 Dehydration; Z91.19 Patient's noncompliance with other medical treatment and regimen; F31.9 Bipolar disorder, unspecified; D63.8 Anemia in other chronic diseases classified elsewhere; Z87.440 Personal history of urinary (tract) infections; N18.9 Chronic kidney disease, unspecified
CPT/HCPCS: 36415; 70450-TC; 80048-TC; 80053-TC; 80061-TC; 83540-TC; 83735-TC; 84100-TC; 84443-TC; 84484-TC; 85025-TC; 87081-TC; A4606; A6402; G0378; J1940; J3490; J7030; Z7610